=== PATIENT | female | born 1950 | race Caucasian/White ===

== ENCOUNTER 2021-06-17 16:07 | Inpatient (IN) ==
[2021-06-17] MEDS ORDERED: Perflutren Lipid Microsphere 1.3 ML in 0.9 % Sodium Chloride 8.7 ML IVP PRN (21:29)
[2021-06-17] MEDS ORDERED: Dextrose Gel 15 GM/37.5 ML TUBE PO PRN ×2 (22:24)
[2021-06-17] MEDS ORDERED: D5% in Water 1,000 ML IVC PRN (22:24)
[2021-06-17] MEDS ORDERED: *HR* Dextrose 50 % in Water (Vial) 50 ML VIAL IVP PRN (22:24)
[2021-06-17] MEDS ORDERED: Acetaminophen 325 MG TABLET PO PRN (22:46)
[2021-06-17] MEDS ORDERED: Naloxone 0.4 MG/ML INJ IVP PRN (22:46)
[2021-06-17] MEDS ORDERED: Ondansetron 4 MG/2 ML VIAL IVP PRN (22:46)
[2021-06-18] MEDS ORDERED: Aspirin Enteric Coated 325 MG Tablet PO ONE
[2021-06-18] MEDS: Insulin LISPRO 300 UNITS/3 ML VIAL SUBQ SCH ×6 (00:14→20:12)
[2021-06-18 02:19] LABS: Hematocrit 36.3 % (35.3-44.9); Hemoglobin 11.5 g/dL (11.5-15.4); Mean Corpuscular HGB Conc 31.7 g/dL (31.6-35.5); Mean Corpuscular Hemoglobin 29.9 pg (28.0-33.3); Mean Corpuscular Volume 94.5 fL (83.0-100.0); Mean Platelet Volume 11.7 fL (9.4-12.4); Platelet Count 159 K/mcL (140-400); Red Blood Count 3.84 M/mcL (3.82-4.97); Red Cell Distribution Width 14.2 % (11.5-14.5); White Blood Count 7.7 K/mcL (4.3-11.1)
[2021-06-18 02:28] LABS: INR 1.1; Prothrombin Time 12.9 Seconds (9.4-12.1)
[2021-06-18 02:31] LABS: Activated Partial Thrombo Time 28.5 Seconds (26.0-36.0)
[2021-06-18 02:41] LABS: Magnesium 2.1 mg/dL (1.6-2.6)
[2021-06-18 02:43] LABS: Alanine Aminotransferase 11 Units/L (7-52); Albumin 3.7 g/dL (3.5-5.7); Albumin/Globulin Ratio 1.3 (1.1-2.2); Alkaline Phosphatase 48 Units/L (34-104); Aspartate Amino Transferase 14 Units/L (13-39); BUN/Creatinine Ratio 13 (6-26); Bilirubin,Total 0.3 mg/dL (0.3-1.0); Blood Urea Nitrogen 19 mg/dL (8-23); Calcium 9.1 mg/dL (8.6-10.3); Carbon Dioxide 27 mEq/L (23-29); Chloride 107 mEq/L (98-107); Chol/HDL Ratio 5.2 (0-4.9); Cholesterol 193 mg/dL (< 200); Globulin 2.8 g/dL (2.4-3.5); Glucose 108 mg/dL (70-105); HDL Cholesterol 37 mg/dL (40-59); LDL Cholesterol,Calculated 112 mg/dL (< 100); Osmolality,Calculated 297 (280-300); Potassium 3.8 mEq/L (3.5-5.1); Sodium 142 mEq/L (136-145); Total Protein 6.5 g/dL (6.4-8.9); Triglycerides 221 mg/dL (< 150); eGFR For African Americans 44 (> 60); eGFR For Non-African Americans 36 (> 60)
[2021-06-18 02:50] LABS: Troponin I < 0.03 ng/mL (< 0.04)
[2021-06-18 02:52] LABS: Thyroid Stimulating Hormone 0.767 mcIU/mL (0.340-5.600)
[2021-06-18 03:03] LABS: Folate 9.5 ng/mL (3.0-16.0)
[2021-06-18 03:05] LABS: Vitamin B12 > 1500 pg/mL (250-1100)
[2021-06-18 03:22] LABS: Estimated Average Glucose 146 mg/dl; Hemoglobin A1C 6.7 %
[2021-06-18 08:05] LABS: Bacteria,Urine Few per hpf (None-Few); Bilirubin,Urine Negative (Negative); Blood,Urine Negative (Negative); Clarity,Urine Clear (Clear); Color,Urine Light-Yellow (Yellow); Glucose,Urine (UA) Normal (Normal); Ketones,Urine Negative (Negative); Leukocyte Esterase,Urine Small (Negative); Mucus,Urine Few per lpf (None-Few); Nitrite,Urine Negative (Negative); PH,Urine 6.5 pH Units (5.0-8.0); Protein,Urine Negative (Neg-Trace); RBC,Urine 0-3 per hpf (0-3); Specific Gravity,Urine 1.019 (1.010-1.025); Squamous Epithelial Cell,Urine Few per hpf (None-Few); Urobilinogen,Urine Normal (Normal)
[2021-06-18] MEDS ORDERED: 0.9 % Sodium Chloride 1,000 ML IVC SCH (10:30)
[2021-06-18] MEDS: cefTRIAXone 1,000 MG in Water for inj. (sterile) 10 ML IVP SCH (12:55)
[2021-06-19 05:30] LABS: Hematocrit 36.8 % (35.3-44.9); Hemoglobin 11.6 g/dL (11.5-15.4); Mean Corpuscular HGB Conc 31.5 g/dL (31.6-35.5); Mean Corpuscular Hemoglobin 30.3 pg (28.0-33.3); Mean Corpuscular Volume 96.1 fL (83.0-100.0); Mean Platelet Volume 11.6 fL (9.4-12.4); Platelet Count 153 K/mcL (140-400); Red Blood Count 3.83 M/mcL (3.82-4.97); Red Cell Distribution Width 14.4 % (11.5-14.5); White Blood Count 7.5 K/mcL (4.3-11.1)
[2021-06-19 05:47] LABS: Calcium 8.7 mg/dL (8.6-10.3); Potassium 3.9 mEq/L (3.5-5.1)
[2021-06-19] MEDS: Insulin LISPRO 300 UNITS/3 ML VIAL SUBQ SCH ×4 (08:20→20:48)
[2021-06-19] MEDS: Aspirin Enteric Coated 81 MG Tablet PO SCH (09:38)
[2021-06-19] MEDS: cefTRIAXone 1,000 MG in Water for inj. (sterile) 10 ML IVP SCH (09:39)
[2021-06-20 01:33] LABS: Hemoglobin 11.5 g/dL (11.5-15.4); Mean Corpuscular HGB Conc 31.9 g/dL (31.6-35.5); Mean Corpuscular Hemoglobin 30.3 pg (28.0-33.3); Mean Platelet Volume 11.3 fL (9.4-12.4); Platelet Count 152 K/mcL (140-400); Red Blood Count 3.79 M/mcL (3.82-4.97); Red Cell Distribution Width 14.1 % (11.5-14.5)
[2021-06-20 01:51] LABS: Calcium 8.9 mg/dL (8.6-10.3); Potassium 3.6 mEq/L (3.5-5.1)
[2021-06-20 02:54] VITALS: O2SAT 97
[2021-06-20 06:58] VITALS: PULSE 56; TEMP 98.3
[2021-06-20] MEDS: Insulin LISPRO 300 UNITS/3 ML VIAL SUBQ SCH (07:52)
[2021-06-20] MEDS: Aspirin Enteric Coated 81 MG Tablet PO SCH (08:00)
[2021-06-20] MEDS: cefTRIAXone 1,000 MG in Water for inj. (sterile) 10 ML IVP SCH (08:01)
[2021-06-20] MEDS ORDERED: DilTIAZem CD (24hr) 240 MG CAP.ER.24H PO SCH (09:00)
[2021-06-20 10:10] VITALS: BP 145/73
== END 2021-06-20 13:47 | disposition home or self-care (01) | DRG 92 ==
LOC: 3BNU → SUATTDRO 19:06
PROVIDERS: ADMIT Internal Medicine; ATTEND Nurse Practitioner